=== PATIENT | male | born 1965 | race African-American/Black ===

== ENCOUNTER 2017-10-23 12:00 | Day surgery (SDC) | payer BC, OTHER ==
[2017-10-20 14:14] VITALS: BMI 36.6
[2017-10-23] MEDS ORDERED: LIDOCAINE 1%/EPI 1:100000 (20 ML MULTI DOSE VIAL) ONE (14:36)
[2017-10-23] MEDS ORDERED: ONDANSETRON 4 MG/2 ML VIAL IVPUSH PRN (14:55)
[2017-10-23] MEDS ORDERED: oxyCODONE HCL 5 MG TABLET PO PRN (14:55)
[2017-10-23] MEDS ORDERED: LACTATED RINGERS SOLUTION 1,000 ML IV SCH (15:00)
[2017-10-23] MEDS ORDERED: MIDAZOLAM HCL 2 MG/2 ML SINGLE DOSE VIAL ONE (15:04)
[2017-10-23] MEDS ORDERED: PROPOFOL 20 ML ONE (15:08)
[2017-10-23] MEDS ORDERED: LEVOFLOXACIN 500 MG PREMIX BAG IVPB ONE (15:09)
[2017-10-23] MEDS ORDERED: LIDOCAINE HCL 1%, 10 MG/ML (20ML VIAL) INF ONE (15:43)
[2017-10-23] MEDS ORDERED: BUPIVACAINE HCL/PF 0.5% (5MG/ML) 10 ML VIAL IJ ONE (15:44)
[2017-10-23] MEDS ORDERED: SEVOFLURANE 250 ML BTL ONE (17:00)
[2017-10-23 17:13] VITALS: TEMP 98.4
--- NOTE | 2017-10-23 17:14 | OP ---
Operative Note - Note: Operative Date: 10/23/17 Pre-Operative Diagnosis: right epididymal cyst and right hydrocele Operation: right hydrocelectomy and excision of right epididymal cyst Findings: right epididymal cyst and right hydrocele Post-Operative Diagnosis: Same as Pre-op Surgeon: César Moffett Anesthesia: General
[2017-10-23] MEDS ORDERED: oxyCODONE HCL 5 MG TABLET ONE (17:17)
[2017-10-23 17:57] VITALS: BP 139/84; PULSE 84
--- NOTE | 2017-10-24 09:10 | OP ---
DATE OF OPERATION: 10/24/2017 PREOPERATIVE DIAGNOSIS: Right epididymal cyst. PREOPERATIVE DIAGNOSIS: Right epididymal cyst and right hydrocele SURGEON: Júnior Hurley MD ANESTHESIA: General. DESCRIPTION OF PROCEDURE: The patient was brought to the operating room and prepped and draped in the usual sterile manner. General anesthesia and preoperative antibiotics were administered. A hemiscrotal incision was made on the right side. Sharp and blunt dissection was taken to the level of the scrotal contents. The scrotal contents were then brought outside of the wound. A hydrocele was noted. The hydrocele was entered and the hydrocele was removed. A continuous 3-0 Vicryl stitch was utilized in order to oversew the margins of the hydrocele. At this point the epididymal cyst was seen. Sharp and blunt dissection was utilized to isolate the epididymal cyst. The epididymal cyst was then entered and excised. The overlying tissue was utilized in order to create a hemostatic closure of the epididymis over the cyst. Excellent hemostasis was obtained. No complications were noted. The patient had the scrotal contents replaced into the right hemiscrotum, and a 2-layer closure was performed. No complications were noted. The patient tolerated the procedure very well. JÚNIOR HURLEY M.D. [id number]
--- NOTE | 2017-10-25 14:46 | PATH ---
Surgical Pathology Report Patient Name: JASON CHASE [facility]. Rec. #: [id number] /Age/Gender: 1965 (Age: 52) / M Account: [id number] Location: [facility] SURGICAL Taken: 10/23/2017 Received: 10/24/2017 Reported: 10/25/2017 Physicians: César Moffett Specimen(s) Received A: RIGHT HYDROCELE SAC B: RIGHT EPIDIDYRMAL CYST Clinical History Right epididymal cyst Final Diagnosis A. HYDROCELE SAC, RIGHT, HYDROCELECTOMY: FIBROMEMBRANOUS TISSUE CONSISTENT WITH HYDROCELE SAC. B. EPIDIDYMAL CYST, RIGHT, EXCISION: CONSISTENT WITH EPIDIDYMAL CYST. Electronically Signed María Melton M.D. Gross Description A. Received in formalin labeled "right hydrocele sac," is a 3.8 x 1.6 x 0.3 cm luu-hill, irregular portion of soft tissue, consistent with a hydrocele sac. Stacker Attendant sections are submitted in one cassette. B. Received in formalin labeled "right epididymal cyst," is a 1.3 x 0.5 x 0.2 cm luu, irregular portion of soft tissue, consistent with a cyst. The specimen is serially sectioned and entirely submitted in one cassette. /10/24/201710/24/2017
== END 2017-10-23 18:02 | disposition home or self-care (01) ==
LOC: JASU-SURG 12:00
PROVIDERS: ATTEND Urology
PROC: 0VB50ZZ Excision of Scrotum, Open Approach (ICD-10-PCS; 2017-10-23)
PROC: 0VB60ZZ Excision of Right Tunica Vaginalis, Open Approach (ICD-10-PCS; principal; 2017-10-23 13:30)
DX: N43.3 Hydrocele, unspecified (principal); L72.0 Epidermal cyst
CPT/HCPCS: 82962; 88302-TC; 88304-TC; 94760